=== PATIENT | male | born 1990 | race American Indian/Alaskan Native ===

== ENCOUNTER 2016-11-18 13:17 | Emergency (ER) | payer OTHER ==
--- NOTE | 2016-11-18 15:30 | Emergency Department Report ---
Entered by KIRA MELARA, acting as scribe for DORETHA HAMILTON NP. Chief Complaint: Dental/Oral Stated Complaint: TOOTHACHE Time Seen by Provider: 11/18/16 14:43 - HPI History of Present Illness: 25 y/o male present with back lower left side constant, 10/10, achy tooth pain that started 4 days ago. Pt notes his tooth has been broken for one year but pain just recently started. He notes last seeing a dentist 3 years ago. Medication includes OraGel and Ibuprofen with no relief. pt denies tobacco or ETOH use. - ROS Review of Systems: +toothache - gum swelling - vomiting - Exam Vital Signs: Vital Signs 11/18/16 14:44 Temperature 98.3 F Pulse Rate 71 Respiratory 18 Rate Blood Pressure 149/89 O2 Sat by Pulse 100 Oximetry Physical Exam: GENERAL: Patient is alert and oriented x 3. No apparent distress, normal gait, atraumatic. HEAD: Head is normocephalic and atraumatic. no facial swelling noted ENT: tooth number 18 decayed, no abscess noted. no trismus. external ears wnl. nose wnl. EYES: Extraocular movements are intact. Pupils are equal, round, and reactive to light and accommodation. NECK: no lympadenopathy, mild TTP noted along ant. cervical chain. LUNGS: Symmetrical with respiration. No wheezing, rales or crackles, CTAB. HEART: Regular rate and rhythm with normal S1/S2 present. No murmurs, rubs, or gallops. EXTREMITIES/MUSCULOSKELETAL: No cyanosis, clubbing, rash, lesions or edema. Full ROM bilaterally. UE/LE Pulses 2+ bilaterally. LE and UE 5+ strength bilaterally SKIN: Warm and dry. No lesions, ulceration or induration present NEUROLOGIC: No focal deficit. PT is alert. PT has a steady gait MSE screening note: Focused history and physical exam performed. Due to findings the following was ordered: ED Medical Decision Making - Differential Diagnosis toothache dental abscess ED Disposition for MSE Clinical Impression: Toothache, Dental caries Disposition: - TO HOME OR SELFCARE Is pt being admited?: No Does the pt Need Aspirin: No Condition: Stable Instructions: Dental Caries (ED), Toothache (ED) Additional Instructions: Follow up with Dentist in the next 2-3 days No driving or ETOH after taking Tylenol #3 Return to the ED if worsening pain, swelling, or trouble opening your mouth Follow up with PCP in 3-5 days Recheck bp at follow up Prescriptions: Acetaminophen/Codeine [Tylenol #3] 1 tab PO Q6H PRN #7 tab PRN Reason: Pain , Severe (7-10) Amoxicillin 500 mg PO BID #20 capsule Chlorhexidine Mouthwash [Peridex] 15 ml MM BID 7 Days Ibuprofen [Motrin] 600 mg PO Q8H PRN #15 tablet PRN Reason: Pain Referrals: [facility] [Outside] - 3-5 Days [facility] [Outside] - 3-5 Days [facility] [Outside] - 3-5 Days CRYSTAL GARZA MD [Staff Physician] - 3-5 Days Forms: Work/School Release Form(ED) Time of Disposition: 15:00 This documentation as recorded by the SARITHA noble RYAN,accurately reflects the service I personally performed and the decisions made by ,DORETHA HAMILTON , DISEASE CASE MANAGER RN.
[2016-11-18 15:58] VITALS: BP 158/103
== END 2016-11-18 15:58 | disposition home or self-care (01) ==
LOC: ED 13:17
DX: K02.9 Dental caries, unspecified (principal); K08.89 Other specified disorders of teeth and supporting structures
CPT/HCPCS: 99282